=== PATIENT | male | born 1975 | race Caucasian/White ===

== ENCOUNTER 2020-10-06 02:57 | Emergency (ER) | payer MEDICAID ==
[~2020-10-06] VITALS: Ht 172.7 cm; Wt 72.7 kg
[2020-10-06 02:58] VITALS: BP 123/55
== END 2020-10-06 03:40 | disposition home or self-care (01) ==
LOC: ER 02:58
DX: F10.129 Alcohol abuse with intoxication, unspecified (principal); Z72.89 Other problems related to lifestyle; Y90.0 Blood alcohol level of less than 20 mg/100 ml
CPT/HCPCS: 36415; 80320; 99283

== ENCOUNTER 2025-04-07 10:52 | Emergency (ER) | payer MEDICAID ==
[~2025-04-07] VITALS: Ht 172.7 cm; Wt 81.8 kg
--- NOTE | 2025-04-07 11:49 | RADIOLOGY REPORT ---
Indication: RIGHT FOOT PAIN Technique: 3 views right foot Comparison: None FINDINGS/IMPRESSION: There are fractures at the base of the 2nd 3rd and 4th metatarsal bones most pronounced at the 3rd an d 4th metatarsal proximal articular extension. Dorsal right foot soft tissue edema. Recommend CT of the right foot to further evaluate.
--- NOTE | 2025-04-07 13:05 | Physician Documentation ---
History of Present Illness General Chief Complaint: Foot pain Stated Complaint: R FOOT INJURY Time Seen by MD: 12:33 History of Present Illness Initial Comments For your male presents to emergency department status post blunt injury to the right mid forefoot. Struck his foot against door. His significant swelling and pain to the mid forefoot. No ankle injury. Positive antalgic gait. Medication Reconciliation Allergies: Coded Allergies: No Known Allergies (Unverified , 04/07/25) Past Medical History Past Medical History: No Pertinent History Past Surgical History: no surgical history Alcohol Use: Occasionally Drug Use: none Physical Exam Physical Exam Vital Signs: Temperature: 98.9, Source: Temporal, Heart Rate: 111, Respiratory Rate: 16, BP: 138/79, Pulse Oximetry: 95, Weight: 81.820 Oxygen Flow Rate: 0 General Appearance: alert, moderate distress Head: normal inspection Face: normal inspection Pupils/EOM/Fundus: PERRLA Respiratory: no respiratory distress Cardiovascular: regular rate, rhythm Extremities: swelling (Swelling, bruising, no deformity starting distal polyps right mid forefoot) Neurologic: oriented x4 Motor / Sensory: no motor deficit, no sensory deficit Psychiatric: normal mood/affect Skin: normal color, other (Bruise and right mid forefoot) Progress Results/Orders Results/Orders Orders - JESSICA MOE Ct Lower Extremity (04/07/25 13:19) Ortho Orders (04/07/25 ) Ortho Orders (04/07/25 ) Ortho Orders (04/07/25 ) Completed Orders - JESSICA MOE PAC Hydrocodone/Apap 5/325mg Tab ([place]man 5/32 (04/07/25 13:00) Ibuprofen Tablet (Motrin Tablet) (04/07/25 13:00) Ct Lower Extremity (04/07/25 13:19) Medications Received in ER Medications (Trade) Dose Ordered Sig/Grisel Route PRN Reason Start Time Stop Time Status Last Admin Dose Admin ([place] 5/325mg tablet) 2 tab ONCE ONCE PO 04/07/25 13:00 04/07/25 13:02 DC 04/07/25 13:27 2 TAB (Motrin tablet) 800 mg ONCE ONCE PO 04/07/25 13:00 04/07/25 13:02 DC 04/07/25 13:26 800 MG Vital Signs 04/07/25 04/07/25 04/07/25 10:59 13:27 13:28 Temp 98.9 Pulse 111 Resp 16 19 19 B/P (MAP) 138/79 Pulse Ox 95 O2 Flow Rate 0 Medical Decision Making Differential Diagnosis 41-year-old male who is status was blunt injury forefoot. X-rays no fractures metatarsals three four and [address] imaging. Patient provided pain management while in the emergency department. CT without contrast pending. Plan is to discharge patient accordingly in a cam walker boot to be nonweightbearing. Patient placed in Cam walker boot. Asked to be nonweightbearing and provided crutches. CT imaging in if flecks for fractures of the right mid forefoot requiring orthopedic management. Discharged from emergency department with pain management and aftercare instructions. Departure Disposition: HOME / SELF CARE / HOMELESS Impression: Primary Impression: Fracture of right foot Qualified Codes: S92.901A - Unspecified fracture of right foot, initial encounter for closed fracture Condition: Improved Discharge Instructions: Fracture, Foot Additional Instructions: Please wear boot for comfort and support. Please be nonweightbearing and use crutches until follow up with the orthopedist. Referrals: NO PRIMARY CARE PROVIDER (PCP) Prescriptions Hydrocodone Bit/Acetaminophen 5/325 MG ([place] 5/325 MG) 5 Mg/325 Mg Tablet 1-2 TAB PO Q4-6 hours PRN for pain, #20 TAB Prov: JESSICA MOE 04/07/25 Education Educated: Patient Educated regarding: diagnosis, treatment Signature Scribe Signature: . Attestation: . JESSICA MOE Apr 07, 2025 13:05
[2025-04-07] MEDS: ibuprofen tablet 400 MG TABLET PO ONE (13:26)
[2025-04-07] MEDS: HYDROcodone/acetaminophen 5mg/325mg tablet PO ONE (13:27)
--- NOTE | 2025-04-07 13:58 | RADIOLOGY REPORT ---
Indication: Blunt injury Technique: CT axial images of the right foot are obtained without contrast. Coronal and sagittal refo rmats were obtained. Radiation Dose Information: CTDI volume is 16.4 mGy. Dose-length product is 429 mGy*cm Comparison: None FINDINGS/IMPRESSION: Fractures of the base of the 1st, 2nd, 3rd, 4th metatarsal bones. The 3rd and 4th metatarsal bone fra ctures are more severely comminuted. The fractures demonstrate proximal articular extension . Dorsal right foot soft tissue edema.
[2025-04-07] MEDS ORDERED: HYDR-3965 PO (14:27)
[2025-04-07 15:31] VITALS: BP 158/88; PULSE 106; RESP 18; O2SAT 99
[2025-04-07 15:32] VITALS: TEMP 98.9
== END 2025-04-07 15:34 | disposition home or self-care (01) ==
LOC: ER 10:53
DX: S92.811A Other fracture of right foot, initial encounter for closed fracture (principal); Z72.89 Other problems related to lifestyle; W22.09XA Striking against other stationary object, initial encounter; Y93.89 Activity, other specified; Y92.89 Other specified places as the place of occurrence of the external cause; Y99.8 Other external cause status
CPT/HCPCS: 73630; 73700; 99284; L4360